=== PATIENT | male | born 1985 | race Caucasian/White ===

== ENCOUNTER 2022-08-22 07:51 | Observation (INO) | payer OTHER ==
[~2022-08-22] VITALS: Ht 185.4 cm; Wt 68.2 kg
[~2022-08-22 07:51] MED LIST: Bactrim Ds Tab1 EACH PO; Keflex500 MG PO; Veetids 500500 MG PO
[2022-08-22 09:33] LABS: BASOPHILS ABSOLUTE AUTO 0.09 K/mm3 (0.00-0.23); BASOPHILS PERCENT AUTO 1 % (0-2); EOSINOPHILS ABSOLUTE AUTO 0.44 K/mm3 (0.00-0.68); EOSINOPHILS PERCENT AUTO 5 % (0-6); Hematocrit 43.1 % (37.0-53.0); Hemoglobin 14.9 g/dL (13.5-17.5); IMMATURE GRAN ABSOLUTE AUTO 0.03 K/mm3 (0.00-0.10); IMMATURE GRAN PERCENT AUTO 0 % (0-1); LYMPHOCYTES ABSOLUTE AUTO 1.34 K/mm3 (0.84-5.20); LYMPHOCYTES PERCENT AUTO 15 % (21-46); MONOCYTES ABSOLUTE AUTO 0.74 K/mm3 (0.16-1.47); MONOCYTES PERCENT AUTO 8 % (4-13); Mean Corpuscular HGB 32.9 pg (26.0-34.0); Mean Corpuscular HGB Conc 34.6 g/dL (31.5-36.5); Mean Corpuscular Volume 95 fL (80-100); Mean Platelet Volume 11.7 fL (9.1-12.4); NEUTROPHILS ABSOLUTE AUTO 6.31 K/mm3 (1.96-9.15); NEUTROPHILS PERCENT AUTO 71 % (41-73); Platelet Count 272 K/mm3 (150-400); RDW Coefficient Variation 12.8 % (11.7-14.2); RDW Standard Deviation 45.2 fL (35.1-46.3); Red Blood Cell Count 4.53 M/mm3 (4.30-5.90); White Blood Cell Count 8.95 K/mm3 (4.00-11.30)
[2022-08-22 09:47] LABS: Calcium, Blood 9.2 mg/dL (8.5-10.1); Creatinine, Blood 0.73 mg/dL (0.60-1.20); Potassium, Blood 4.3 mmol/L (3.5-5.5)
[2022-08-22 14:26] LABS: Prothrombin Time Results 10.5 Sec (9.7-11.5)
[2022-08-22 16:12] LABS: Appearance, CSF Clear (Clear); Color, CSF No Color (No Color); RBC Count, CSF 0 /mm3 (0-0); WBC Count, CSF 1 /mm3 (0-5)
[2022-08-22 16:13] LABS: Appearance, CSF Clear (Clear); Color, CSF No Color (No Color); RBC Count, CSF 18 /mm3 (0-0); WBC Count, CSF 1 /mm3 (0-5)
[2022-08-22 16:19] LABS: Glucose, CSF 63 mg/dL (40-70)
[2022-08-22 16:40] LABS: Cryptococcus Neoformans/Gattii Not Detected (NOT DETECT); Enterovirus Not Detected (NOT DETECT); Escherichia Coli K1 Not Detected (NOT DETECT); Haemophilus Influenza Not Detected (NOT DETECT); Herpes Simplex Virus 1 Not Detected (NOT DETECT); Herpes Simplex Virus 2 Not Detected (NOT DETECT); Human Herpesvirus 6 Not Detected (NOT DETECT); Human Parechovirus Not Detected (NOT DETECT); Listeria Monocytogenes Not Detected (NOT DETECT); Neisseria Meningitidis Not Detected (NOT DETECT); Streptococcus Agalactiae Not Detected (NOT DETECT); Streptococcus Pneumoniae Not Detected (NOT DETECT); Varicella Zoster Virus Not Detected (NOT DETECT)
--- NOTE | 2022-08-22 18:03 | NUR ---
SHIFT SUMMARY PT ADMITTED FROM THE ED AROUND 1500, FAMILY ARRIVED AND WAITED FOR HIM TO COME TO THE ROOM. HE IS AOX4 AND TRANSFERS WITH ASSISTANCE. HE IS INDEPENDENT AT HOME AND WORKS A [employer]. ADMISSION INFORMATION COMPLETE. PT HAS BEEN SLEEPING SINCE HIS FAMILY LEFT. WILL REPORT TO ONCOMING NURSE.
[2022-08-23 04:52] LABS: BASOPHILS ABSOLUTE AUTO 0.01 K/mm3 (0.00-0.23); BASOPHILS PERCENT AUTO 0 % (0-2); EOSINOPHILS PERCENT AUTO 0 % (0-6); Hematocrit 42.6 % (37.0-53.0); Hemoglobin 14.7 g/dL (13.5-17.5); IMMATURE GRAN ABSOLUTE AUTO 0.03 K/mm3 (0.00-0.10); IMMATURE GRAN PERCENT AUTO 0 % (0-1); LYMPHOCYTES PERCENT AUTO 7 % (21-46); MONOCYTES ABSOLUTE AUTO 0.06 K/mm3 (0.16-1.47); MONOCYTES PERCENT AUTO 1 % (4-13); Mean Corpuscular HGB 32.4 pg (26.0-34.0); Mean Corpuscular HGB Conc 34.5 g/dL (31.5-36.5); Mean Corpuscular Volume 94 fL (80-100); Mean Platelet Volume 12.1 fL (9.1-12.4); NEUTROPHILS ABSOLUTE AUTO 6.98 K/mm3 (1.96-9.15); NEUTROPHILS PERCENT AUTO 92 % (41-73); Platelet Count 277 K/mm3 (150-400); RDW Coefficient Variation 12.9 % (11.7-14.2); RDW Standard Deviation 44.2 fL (35.1-46.3); Red Blood Cell Count 4.54 M/mm3 (4.30-5.90); White Blood Cell Count 7.58 K/mm3 (4.00-11.30)
--- NOTE | 2022-08-23 05:08 | NUR ---
Summary: No acute events overnight. Patient AOX4. VSS. 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 Patient gait is very unsteady due to R side weakness. Bed alarm on overnight. Plan for MRI with contrast today of spine. Call light in reach patient calls appropriately.
[2022-08-23 05:17] LABS: Albumin, Blood 3.5 g/dL (3.4-5.0); Bilirubin, Total 0.2 mg/dL (0.1-1.0); Bun/Creatinine Ratio 31.3 (12.0-20.0); Calcium, Blood 9.6 mg/dL (8.5-10.1); Creatinine, Blood 0.61 mg/dL (0.60-1.20); Globulin, Blood 3.5 g/dL (2.2-4.0); Potassium, Blood 4.3 mmol/L (3.5-5.5)
--- NOTE | 2022-08-23 16:04 | NUR ---
SHIFT SUMMARY PT AOX4 WITH MULTIPLE VISITORS IN AND OUT OF THE ROOM THIS SHIFT. HE COMPLETED THE MRI THIS AM. THE PLAN WAS FOR HIM TO LEAVE AFTER HIS SECOND DOSE OF IV SOLUMEDROL BUT HE DOES NOT HAVE INSURANCE TO VISIT THE [facility] TOMORROW. DR. SANDOVAL IS GOING TO KEEP HIM FOR ONE MORE NIGHT TO RECEIVED THE THIRD DOSE OF SOLUMEDROL TOMORROW. HE WILL MOST LIKELY DISCHARGE AFTER THAT TOMORROW. HE HAS C/O A BARNES THIS SHIFT AND WAS MEDICATED PER THE EMAR, HE ALSO C/O ANXIETY AND AN ORDER WAS OBTAINED FOR XANAX. HE TOOK A SHOWER THIS SHIFT ALSO. WILL REPORT TO ONCOMING NURSE.
--- NOTE | 2022-08-24 06:02 | NUR ---
Summary: No acute events overnight. Patient AOX4. VSS. Patient seat maker in right side is weaker than left. Patient gait is very unsteady due to R side weakness. Bed alarm on overnight. Plan for DC today after IV steroid infusion. Call light in reach patient calls appropriately.
[2022-08-24] MEDS ORDERED: NICO21TP TOP (11:43)
[2022-08-24] MEDS ORDERED: Acetaminophen325 M1 PO (11:44)
--- NOTE | 2022-08-24 13:01 | NUR ---
Patient is lying in bed and alert. His parents are bedside. Patient talks about the struggles of processing his new diagnosis, his symptoms and the medical steps going forward. He states that he he trying to stay positive so we explore ways to do so. We look at his coping skills, resources and hopes for the future. Pt shares about his Buddhism kyleigh and support of his [employer], [facility]. I normalize patient's feelings and experience, provide therapeutic listening, anxiety contaiment and prayer. Teten responds well and voices that his mental/emotional state is greatly improved. I will continue to remain available to the patient and family.
--- NOTE | 2022-08-24 14:22 | NUR ---
DISCHARGE SUMMARY: PT EDUCATED ON DISCHARGE INSTRUCTIONS. ADVISED TO CALL [employer] TODAY TO SET UP APPOINTMENT. PT DECLINED SCRIPT SENT TO PHARMACY FOR NICOTINE PATCH AND STATED HE WILL CONTINUE TO SMOKE CIGARETTES. OFFERED SMOKING CESSATION AND ENCOURAGED TO PT TO STOP SMOKING KYUNG. PT VU. PT ASSISTED WITH PACKING UP BELONGINGS AND PT ESCORTED TO POV VIA WC. PARENTS TOOK PT HOME.
== END 2022-08-24 13:54 | disposition home or self-care (01) ==
LOC: ER 07:51 → MEDS 07:52 → ERHOLD 07:52 → MEDS 15:19
PROVIDERS: Student in an Organized Health Care Education/Training Program; ADMIT Internal Medicine
DX: G37.9 Demyelinating disease of central nervous system, unspecified (principal); I82.409 Acute embolism and thrombosis of unspecified deep veins of unspecified lower extremity; F17.210 Nicotine dependence, cigarettes, uncomplicated
CPT/HCPCS: 36415; 62270; 70450; 70553; 72156; 72157; 72158; 80048; 80053; 82945; 84157; 85025; 85610; 85730; 87070; 87205; 87483; 89051; 93005; 93010; 96374-59; 96375; 96376; 97110; 97110-CO; 97162; 97166; 97530; 97530-CO; 97535-CO; 99285-25; A9270; A9579; G0378; J2060; J2930

== ENCOUNTER → 2022-08-27 | Outpatient (CLI) | payer OTHER ==
[~2022-08-27] MED LIST changes: +Acetaminophen325 M1 PO; +NICO21TP TOP
[2022-08-27 18:59] LABS: C-REACTIVE PROTEIN, EXT RANGE <0.290 mg/dL (0.000-0.300)
[2022-08-27 19:06] LABS: CHOL/HDL RATIO 1.8; Cholesterol 135 mg/dL (50-200); HDL Cholesterol 73 mg/dL (>39); LDL/HDL RATIO 0.5; Low Density Lipoprotein Chol 38 mg/dL (0-110); Triglycerides 122 mg/dL (30-140); Very Low Density Lipoprot Chol 24 mg/dL (6-28)
[2022-08-29 05:08] LABS: CHLAMYDIA TRACHOMATIS, NAA Negative (Negative)
[2022-08-30 13:09] LABS: HIV AB/P24 AG SCREEN Non Reactive (Non Reactive)
== END | disposition home or self-care (01) ==
LOC: LAB SHORT 14:45
PROVIDERS: Student in an Organized Health Care Education/Training Program
DX: Z11.59 Encounter for screening for other viral diseases (principal); G81.90 Hemiplegia, unspecified affecting unspecified side; R51.9 Headache, unspecified; R73.9 Hyperglycemia, unspecified; Z20.2 Contact with and (suspected) exposure to infections with a predominantly sexual mode of transmission
CPT/HCPCS: 80061; 82607; 82746; 83036; 84443; 85651; 86140; 86592; 86803; 87389; 87491; 87591

== ENCOUNTER 2023-02-14 07:52 | Day surgery (SDC) | payer OTHER ==
[2023-02-14] VITALS (18 sets, daily range): BP systolic 117–149; BP diastolic 79–99
[~2023-02-14] VITALS: Ht 182.9 cm; Wt 66.5 kg
[~2023-02-14 07:52] MED LIST changes: +ASPI81CH PO
[2023-02-14] MEDS ORDERED: FAMO10 PO (08:13)
--- NOTE | 2023-02-14 08:27 | NUR ---
History, Chart, Medications and Allergies reviewed before start of procedure. Lungs clear T/O to Auscultation. Patient confirms NPO status and agrees with scheduled surgery. Pre-Op teaching done. Pt verbalizes understanding. Patient States Post-Procedure ride home has been arranged. PT EXHAUST EMISSIONS INSPECTOR TAKEN AND LOCKED UP ON UNIT
--- NOTE | 2023-02-14 09:08 | NUR ---
02/14/23 0908 Simeon Gill HISTORY, CHART, MEDICATIONS AND ALLERGIES REVIEWED BEFORE START OF PROCEDURE. PATIENT CONFIRMS NPO STATUS AND AGREES WITH SCHEDULED PROCEDURE. 3-LEAD EKG REVIEWED WITH PHYSICIAN PRIOR TO START OF PROCEDURE. MONITOR INTACT WITH CONTINUOUS PULSE OXIMETRY,CAPNOGRAPHY, 3-LEAD EKG, INTERMITTENT BP. SUPPLEMENTAL O2 TO BE TITRATED THROUGHOUT PROCEDURE TO MAINTAIN O2 SATURATION ABOVE 90%. PATIENT DETERMINED TO BE ASA APPROPRIATE FOR PROPOFOL SEDATION PRIOR TO START OF PROCEDURE BY
--- NOTE | 2023-02-14 09:36 | NUR ---
DR COTTER SPOKE DIRECTLY TO PATIENT ABOUT RESUMING HIS ASPIRIN TODAY.
--- NOTE | 2023-02-14 09:54 | NUR ---
0950- PATIENT UP TO DRESS. GAIT STEADY. VSS. RIDE ARRANGED WITH RESPONSIBLE ADULT, TINA JIMENEZ. PATIENT INSTRUCTED NOT TO DRIVE FOR 24 HOURS DUE TO SEDATION. DISCHARGE INSTRCIONTS REVIED AND COPY GIVEN TO PATIENT.
== END 2023-02-14 09:55 | disposition home or self-care (01) ==
LOC: ORSCMMR 07:52 → ORD 10:00 → ORSCMMR 10:00
PROVIDERS: Internal Medicine Gastroenterology
PROC: 0DB58ZX Excision of Esophagus, Via Natural or Artificial Opening Endoscopic, Diagnostic (ICD-10-PCS; principal; 2023-02-14 10:00)
PROC: 0DB48ZX Excision of Esophagogastric Junction, Via Natural or Artificial Opening Endoscopic, Diagnostic (ICD-10-PCS; principal; 2023-02-14 10:00)
DX: K22.2 Esophageal obstruction (principal); K21.9 Gastro-esophageal reflux disease without esophagitis; K44.9 Diaphragmatic hernia without obstruction or gangrene; K31.4 Gastric diverticulum; F17.210 Nicotine dependence, cigarettes, uncomplicated; Z86.73 Personal history of transient ischemic attack (TIA), and cerebral infarction without residual deficits; Z79.82 Long term (current) use of aspirin
CPT/HCPCS: 88305; A9270; J2250; J2704; J7120